=== PATIENT | female | born 1945 | race Caucasian/White ===

== ENCOUNTER 2016-04-29 15:26 | Observation (INO) | payer MEDICARE, MEDICAID ==
[~2016-04-29] VITALS: Ht 165.1 cm; Wt 107.0 kg
[2016-04-29 17:00] VITALS: BP 176/98; PULSE 77; RESP 20; O2SAT 94
--- NOTE | 2016-04-29 18:23 | NUR ---
Admit To [facility] from [place] at 16:50. Pt has no complaints, is cooperative and friendly with staff. No IV access at this time; per report she pulls them out. Also per report, she did have a fall yesterday. No bruises or injuries noted or reported. 1:1 REHABILITATION SERVICES MANAGER sitter is present in room. Hospitalist aware of pt arrival. Admit nurse to complete med rec.
--- NOTE | 2016-04-29 18:48 | PCM.HPMED ---
Subjective Date of Service Apr 29, 2016 Primary Provider: Admitting Physician: Brian Lozano MD Primary Care Physician: Rajendra Conway MD Attending Physician: Brian Lozano MD Chief Complaint: Tim mental status, agitation History of Present Illness: His 71s of female with multiple past medical history including but not limited to major depression, bipolar, COPD, hyperlipidemia, stroke, atrial fibrillation on Coumadin, who was sent from [facility] to [facility] basically for psychiatry evaluation which is not available. Patient has history of multiple strokes recent with approximately 4 weeks ago per medical record. She was eventually discharged rehabilitation and was readmitted for sudden episode of agitation. Again per record does episode seems to be unprovoked. Patient baseline is unknown to me but medical record review showed bipolar disorder and major depression. She uses to care for her who is now diagnosed with terminal lung cancer. Beside a UTI patient has no active medical issues. No chest pain, no shortness of breath, no fever, no chills, no knowledge, no vomiting,. Review of Systems: A comprehensive review of system cannot be obtain this time due to the patient' s altered mental status Allergies Coded Allergies: No Known Allergies (Unverified , 04/29/16) Home Medications Atorvastatin 80 mg orally daily, citalopram 20 mg orally daily, Coumadin 2 mg daily as directed with for many milligrams, thinking 3 mg 3 times a day, lamotrigine 200 mg orally daily at bedtime, lamotrigine 200 mg daily, lisinopril 5 mg daily, metoprolol 100 mg twice a day OTC : Milk of magnesia, senna, Tylenol, Dulcolax, PMH CVA, chronic atrial fibrillation, Duncan, hypertension, neuropathy, major depressive disorder, hyperlipidemia, dysphagia, hemiparesis, hemiplegia, COPD, bipolar, Surgical History Unable to obtain due to patient's altered mental status Family History Family history reasonable to obtain due to patient mental status Social History Hx Alcohol Use: Yes Alcoholic Drinks Per Day: none currently, for years Hx Substance Use: No Exam Vital Signs Vital Sign - Last Date Time Temp Pulse Resp B/P Pulse Ox O2 Delivery O2 Flow Rate FiO2 04/29/16 17:00 36.6 77 20 176/98 94 Room Air Exam General: Obese female in bed comfortably in no acute distress. Confused HEENT: Head is cephalic and atraumatic, sclerae anicteric\ Mouth: Moist oral mucosa, no oral thrush. Neck: No cervical lymphadenopathy, no JVD, trachea is midline. Chest: No chest wall tenderness, no deformity, no respiratory effort Lungs: Clear bilaterally to auscultation, no crackle, no wheezing Heart: S1, S2, irregular rate and routine, no gallop, no murmur. Abdomen: Bowel sounds normal all quadrant, no palpable mass, distended, non tender. Extremities: No edema, no cyanosis, no calf tenderness. Skin: No rash, no ulcers Nuero ; cn : Grossly non focal. Confused Lab and Diagnostics Labs Pending Assessment & Plan 1. Recurrent CVA \ 2. Dysphasia 3. Hypertension 4 . Dementia with behavioral disturbances 5. Atrial Fibrillation ( Chronic) 6. UTI. Patient is medically stable beyong the scope of ongoing UTI. Start IV ceftriaxone and obtain urine culture . Her UTI has nothing to do with her AMS and episode of agitation . She is transferred here from [place] for episodic agitation and AMS following CVA. She needs psychiatry evaluation which is not available there.It appears she has been functional prior to the CVA after which she had deteriorated and sent to rehabilitation . Consult speech and swallow for dysphasia PT evaluation Home medications to be resumed . Coumadin per pharmacist . INR in am . Disposition pending psychiatry evaluation and recommendations. VTE Prophylaxis: Theraputic Anticoag with Warfarin VTE Mechanical Devices: Intermittant Pneumatic CD Time spent 55 minutes Brian Lozano MD Apr 29, 2016 18:48
[2016-04-29 20:09] VITALS: BP 152/76; PULSE 88; RESP 20; O2SAT 94
[2016-04-29] MEDS ORDERED: BISA10SU61 RC (20:57)
[2016-04-29] MEDS ORDERED: WARF2TAB PO (20:57)
[2016-04-29] MEDS ORDERED: ATOR80TA77 PO (20:57)
[2016-04-29] MEDS ORDERED: GABA-502 PO (20:57)
[2016-04-29] MEDS ORDERED: ACET325C PO (20:57)
[2016-04-29] MEDS ORDERED: CITA20TA PO (20:57)
[2016-04-29] MEDS ORDERED: LAMO200T2 PO (21:00)
[2016-04-29] MEDS ORDERED: GERI-LANTA PO (21:00)
[2016-04-29] MEDS ORDERED: LAMO100T2 PO (21:00)
[2016-04-29] MEDS ORDERED: LISI-571 PO (21:00)
[2016-04-29] MEDS ORDERED: MAGN800O PO (21:01)
[2016-04-29] MEDS ORDERED: METO100T3 PO (21:01)
[2016-04-29] MEDS ORDERED: RISP0.5T14 PO (21:01)
[2016-04-29] MEDS ORDERED: SENN-133 PO (21:01)
[2016-04-29] MEDS ORDERED: Magnesium Hydroxide 10 mL Oral Concentration PO PRN (21:10)
[2016-04-29 21:33] LABS: INR 4.18 ratio
--- NOTE | 2016-04-29 22:05 | PCM.CONPHA ---
Subjective Date of Service: Apr 29, 2016 Requesting Provider: Brian Lozano MD mental status, agitation Reason for Pharmacy Consult: Anticoagulation Management Objective Vital Signs Date Time Temp Pulse Resp B/P Pulse Ox O2 Delivery O2 Flow Rate FiO2 04/29/16 20:09 36.8 88 20 152/76 94 Room Air 04/29/16 17:00 36.6 77 20 176/98 94 Room Air Weight (Kilograms): 107.000 Height (Feet): 5 Height (Inches): 5.00 Test 04/29/16 21:09 Prothrombin Time 46.0sec (8.1-12.5) Prothromb Time International Ratio 4.18ratio Assessment/Plan Assessment/Plan Warfarin dosing per pharmacy Indication: history of stroke INR goal: 2-3 Home warfarin dose: 2 mg daily Called Nayeli Hernández, at [facility] Pharmacy (after hours pharmacy service for [facility] - [phone]) and she provided the following information. She stated that some INR labs provided come from outpatient setting. Source CASCADE CASCADE CASCADE CASCADE CASCADE CASCADE CASCADE Date Apr 23Apr 24Apr 25Apr 26Apr 27Apr 28 INR 2.2 2.5 3.0 2.7 not avail 2.8 3.9 Dose not avail not avail not avail 2 mg 2 mg 2 mg 2 mg Of note, it appears that warfarin was given on 04/28 despite supratherapeutic INR. INR this evening is 4.18. Hold warfarin today. Pharmacy to continue to monitor and dose warfarin daily. Thank you, Karen Peterson Pharmacist Karen Peterson Apr 29, 2016 22:05
[2016-04-29] MEDS ORDERED: 0.9% Sodium Chloride 250 ML ONE (22:10)
[2016-04-29] MEDS: cefTRIAXone Inj 1,000 MG in Dextrose 5% Minibag Plus 50 ML IV SCH (22:21)
[2016-04-29] MEDS ORDERED: risperiDONE 1 mg Tablet PO ONE (23:00)
[2016-04-30 01:25] VITALS: BP 167/86; PULSE 78; RESP 22; O2SAT 94
[2016-04-30 05:02] VITALS: BP 137/73; PULSE 87; RESP 20; O2SAT 95
[2016-04-30 05:36] LABS: BASOPHILS % (AUTO) 0.2 % (0-3); EOSINOPHILS % (AUTO) 3.4 % (0-5); MONOCYTES % (AUTO) 10.3 % (4-12); Mean Corpuscular Hemoglobin 27.2 pg (27.0-35.0); Mean Corpuscular Volume 84.2 fL (81-100); NEUTROPHILS % (AUTO) 74.9 % (40-74); Platelet Count 262 bil/L (150-400)
[2016-04-30 06:12] LABS: INR 3.47 ratio
--- NOTE | 2016-04-30 06:21 | NUR ---
behavior pt started shift pleasant and cooperative with care. she allowed nurse to place an IV and was given her IV antibiotics. a couple hours into shift she started looking agitated. sitting up on the side of the bed rocking back and forth. she said she was trying "not to go crazy" and pull out her IV like last time. she asked if she could have something to calm her down. MD notified who ordered her a one time dose of risperdone. pt was given medication it seemed effective and she fell asleep. later on she woke up went to the bathroom and when the ATHLETIC EQUIPMENT MANAGER put gloves on she became agitated. she asked him "why do you want to kill me", "I know your going to kill me that's why your wearing gloves". nurse came in and tried to explain to pt that no one was trying to kill her but she said "your in on it too". the more staff engaged in the conversation the more upset pt appeared to get. pt was calmly told that she was safe and that the nurse would be back to check on her later. the ATHLETIC EQUIPMENT MANAGER sitter also removed her self from the room to deescalate the situation but sat in the doorway so she could still see the patient. pt has been calm the rest of the morning but any interaction with pt causes her to accuse staff of trying to kill her. will continue to monitor.
[2016-04-30 09:16] VITALS: BP 171/70; PULSE 95; RESP 22; O2SAT 93
--- NOTE | 2016-04-30 09:45 | NUR ---
Evaluation completed. Please go to "Notes" then click on "Assessments and Notes" (bottom left corner of screen). Then select appropriate discipline tab on top of screen.
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
--- NOTE | 2016-04-30 10:24 | NUR ---
Case Management: MELÉNDEZ given and explained to pt at 10:15. Anitha BILL, RN
[2016-04-30] MEDS: lamoTRIgine 100 mg Tablet PO SCH (10:46)
[2016-04-30] MEDS: risperiDONE 1 mg Tablet PO SCH ×2 (10:47→21:13)
--- NOTE | 2016-04-30 11:11 | NUR ---
Dropped Medication Patient dropped one 40 mg tab of atorvastatin. Removed one atorvastatin from [facility]. Sitter at bedside. Patient repositions self for comfort. Call light and tray table within reach. Will continue to monitor patient hourly.
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
--- NOTE | 2016-04-30 11:18 | NUR ---
NUTRITION ASSESSMENT Assess: 71 F w/ dementia, agitation, dysphagia, and UTI. Pt on dysphagia mechanical diet per ST, who have signed off at this time. Pt w/ poor dentition. Per MD, pt is medically stable however is awaiting a psychiatry evaluation. PMHx: CVA, Afib, HTN, Dementia, Neuropathy, Depression, HLD, Dysphagia, Hemiparesis, Hemiplegia, COPD, Bipolar LABS: Reviewed. Glu 125 MEDICATIONS: Reviewed. DIET: Dysphagia Mechanical, PO 25-50% GI symptoms/stool: No BM recorded Skin integrity: No issues noted, Lucho: 23 ANTHROPOMETRICS: Current Wt: 107 kg BMI: 39.3 kg/l1Ncbzn Wt: 107 kg IBW: 56.8 kgAdj BW: 69.4 kg Recent wt changes: None noted ESTIMATED NEEDS: BMI Calories: 4656-4526 kcal/d (25-30 kcal/kg/d Adj BW) Protein: 85-105 g/d (1.2-1.5 g/kg/d Adj BW) Fluids: 0176-3000 ml/d (1 ml/kcal/d) NUTRITION DIAGNOSIS: 1) Chewing/swallowing difficulty related to dentition as evidenced by missing/broken teeth and need for dysphagia diet. INTERVENTION: 1) Diet per ST recommendations 2) Will send supplements as needed MONITOR/EVALUATE: Diet yo, PO intake, Labs, Nutrition status, POC. Will follow per moderate nutrition risk guidelines.
[2016-04-30 12:22] VITALS: BP 123/56; PULSE 78; RESP 20; O2SAT 93
--- NOTE | 2016-04-30 15:11 | PCM.PHAPRO ---
Progress [place] mental status, agitation WARFARIN MANAGEMENT PER PHARMACY [facility] CASCADE CASCADE CASCADE CASCADE CASCADE CASCADE CASCADE MB DFF Date 16 17Apr 24Apr 25Apr 26Apr 27Apr 28Apr 29-Apr 24-Apr INR 2.2 2.5 3.0 2.7 2.8 3.9 4.18 3.47 INR change 0.3 0.5 -0.3 2.8 1.1 0.28 -0.71 Warf Dose 2 2 2 2 HOLD HOLD Supratherapeutic INR. Will continue to hold this evening. Neri Pedraza Apr 30, 2016 15:11
[2016-04-30 16:43] VITALS: BP 154/76; PULSE 72; RESP 18; O2SAT 95
--- NOTE | 2016-04-30 17:56 | NUR ---
Behavior Patient pleasant and cooperative this shift. Call light teaching done periodically this shift. Denies pain and nausea. Patient repositions self for comfort. Call light and tray table within reach. Will continue to monitor patient hourly.
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
[2016-04-30 20:00] VITALS: BP 139/75; PULSE 75; RESP 18; O2SAT 94
[2016-04-30] MEDS: cefTRIAXone Inj 1,000 MG in Dextrose 5% Minibag Plus 50 ML IV SCH (21:19)
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
[2016-05-01 05:34] VITALS: BP 129/72; PULSE 70; RESP 18; O2SAT 95
--- NOTE | 2016-05-01 05:48 | NUR ---
behavior pt pleasant and cooperative with care. she has slept most of the night. she still needs reminding to use her call light. chai alarm is on. care continues.
[2016-05-01 06:01] LABS: BASOPHILS % (AUTO) 0.2 % (0-3); EOSINOPHILS % (AUTO) 3.6 % (0-5); MONOCYTES % (AUTO) 13.2 % (4-12); Mean Corpuscular Hemoglobin 27.3 pg (27.0-35.0); Mean Corpuscular Volume 82.5 fL (81-100); Platelet Count 236 bil/L (150-400)
[2016-05-01 06:21] LABS: INR 2.51 ratio
[2016-05-01 06:32] LABS: Magnesium 1.9 mg/dL (1.6-2.6); Phosphorus 4.2 mg/dL (2.5-4.9)
[2016-05-01] MEDS: Pantoprazole 40 mg ER24 Tablet PO SCH (10:41)
[2016-05-01] MEDS: risperiDONE 1 mg Tablet PO SCH ×2 (10:49→20:13)
[2016-05-01] MEDS: lamoTRIgine 100 mg Tablet PO SCH (11:04)
[2016-05-01 14:46] VITALS: BP 105/58; PULSE 70; RESP 19; O2SAT 94
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
--- NOTE | 2016-05-01 16:30 | NUR ---
Social Work- Continued Discharge Planning Data: EMR reviewed. Pt is on day 2 of hospitalization for dementia with agitation per H&P. Psych has evaluated patient, who does not meet criteria for inpatient psychiatric care. Psych has ordered an OT evaluation. This evaluation is pending. Pt has been ambulating 400 ft with Physical Therapy. CRESCENCIO spoke with pts Roberto Carlos [phone] by phone today. Pts states he is not able to care for her at home due to his own medical concerns. CRESCENCIO spoke with Roberto Carlos regarding pt going home with HH. HH role explained. Roberto Carlos does not feel that HH provides the support he will need in caring for pt. CRESCENCIO educated pts about private pay SNF or private pay caregivers. SW continues to reinforce this to pts . As requested, CRESCENCIO faxed psych evaluation to [facility]. SNF will review patient for acceptance beginning Tuesday. CRESCENCIO spoke with UR RN who will request insurance auth for SNF placement. CRESCENCIO continues to follow. Assessment: Pt who will benefit from HH vs. SNF. Plan: Pt to be reassessed by [facility] for SNF eligibility. Insurance auth to be requested. CRESCENCIO continues to educate pts about HH, private pay SNF, and private pay caregivers. SW to educate on KIRAN process. CRESCENCIO continues to follow. JESSENIA Strickland
--- NOTE | 2016-05-01 18:03 | PCM.PNPSY ---
Subjective Date of Service May 01, 2016 Subjective Patient seen by this leader writer at 0930 this morning. She recognized this leader writer from yesterday as the psychiatrist but did not recall my name. She stated that she did not believe her was having an affair. She stated that she realized that it may be difficult for her to risk manager her at times, but that she is feeling much better than she did a few days ago. Explained the medication changes since transfer to [facility]. Patient had difficulty processing information but stated that she trusted the medical staff on her behalf. She was oriented to May 01, 2016, the hospital. Patient still reported suicide gesture with a butter knife was "a long time ago" despite there being a still healing superficial laceration. No side effect c/o. Sleep: "pretty good" Appetite: "good" Suicidal and homicidal ideation: denies Auditory hallucinations: denies Visual hallucinations: denies Other Psychotic Symptoms: N/A Anxiety/Depression: about return home Current Medications Current Medications Atorvastatin Calcium 80 mg DAILY PO Last administered on 05/01/16 10:43; Admin Dose 80 MG; Start 04/30/16 at 08:30 Ceftriaxone Sodium/Dextrose/ Water 50 ml @ 100 mls/hr Q24H IV Last administered on 04/30/16 21:19; Admin Dose 100 MLS/HR; Start 04/29/16 at 19:25 Citalopram Hydrobromide 20 mg DAILY PO Last administered on 05/01/16 10:42; Admin Dose 20 MG; Start 04/29/16 at 21:10 Gabapentin 300 mg TID PO Last administered on 05/01/16 10:42; Admin Dose 300 MG ; Start 04/30/16 at 08:30 Lamotrigine 300 mg DAILY PO Last administered on 05/01/16 11:04; Admin Dose 300 MG; Start 04/30/16 at 08:30 Lisinopril 5 mg DAILY PO Last administered on 05/01/16 10:42; Admin Dose 5 MG; Start 04/30/16 at 08:30 Metoprolol Tartrate 100 mg BID PO Last administered on 04/30/16 10:47; Admin Dose 100 MG; Start 04/30/16 at 08:30; Stop 04/30/16 at 15:35; Status DC Metoprolol Tartrate 100 mg BID PO Last administered on 05/01/16 10:43; Admin Dose 100 MG; Start 04/30/16 at 20:30 Pantoprazole 40 mg DAILYAC PO Last administered on 05/01/16 10:41; Admin Dose 40 MG; Start 05/01/16 at 07:30 Risperidone 0.5 mg ONCE ONCE PO Last administered on 04/29/16 23:03; Admin Dose 0.5 MG; Start 04/29/16 at 23:00; Stop 04/29/16 at 23:01; Status DC Risperidone 0.5 mg 0.5 mg BID PO Last administered on 05/01/16 10:49; Admin Dose 0.5 MG; Start 04/30/16 at 08:30 Senna 8.6 mg DAILY PRN PO Last administered on 05/01/16 12:36; Admin Dose 8.6 MG; Start 04/29/16 at 21:10 Sodium Chloride 250 ml @ ud STK-MED ONCE .ROUTE Last administered on 04/29/16 22:21; Admin Dose 10 MLS/HR; Start 04/29/16 at 22:10; Stop 04/29/16 at 22:13; Status DC Mental Status Exam Vital Signs Vital Signs Date Time Temp Pulse Resp B/P Pulse Ox O2 Delivery O2 Flow Rate FiO2 05/01/16 14:46 36.4 70 19 105/58 94 Room Air Appearance: Neat/well groomed (per hospital setting) Attitude: Pleasant, Cooperative Behavior: No unusual behavior Affect: Well Modulated/Appropriate Mood: Euthymic Thought Process/Associations: Logical/Sequential, Goal Directed Speech Production: Normal Speech Rate: Normal Speech Articulation: Normal Thought Content: Appropriate Danger to Self/Suicidal Ideati: None Danger to Others: None Delusions: Paranoid (Denies) Hallucinations: Auditory (Denies), Visual (Denies) Consciousness: Alert Orientation: Person, Place (partial), Date, Situation Memory: Short Term Memory (Impaired) Estimate Intellectual Function: Average Attention/Concentration & Cogn: Impaired Insight: Limited Judgement: Limited Result Diagram: 05/01/1653205/01/16532 Mental Health Plan The patient is a 71-year-old female with multiple recent cerebrovascular accidents and resulting neurocognitive deficits and apparent onset of hallucinations and delusions. The patient reports a history of bipolar disorder , although her symptoms appear inconsistent with bipolar. Given her cognitive deficits and inability of her to clarify much further, a definitive diagnosis of bipolar cannot be made. This could also be secondary to an axis II disorder, particularly given her report that, should she return home, all she needs is "cuddling, kidding around, and being aroused," by her . The patient's presentation would suggest that this is primarily, at this point, due to a stroke and she appears to have responded well to the low-dose risperidone. Would avoid using high doses of haloperidol or olanzapine. Of note, [facility] stated that they had prescribed olanzapine, but this was not seen in the last few days of her medications. Lamictal has been decreased since admission to [facility] but this should be clarified with her outpatient provider. The patient does not appear to have focal memory deficits that might benefit from such a medication as Namenda. Should the patient's depression worsens, citalopram could potentially be increased. The patient appears to have limited insight into her deficits and her mobility- impaired , who would certainly not be able to assist with a 107-kg , particularly should she fall. He has difficulty with ambulation and requires assistance himself. The patient would likely benefit from KIRAN ([facility] ) assessment and Occupational Therapy assessment for ADL's. Notes from [facility] indicated that geropsychiatric units were unwilling to take the patient given her inability to attend to her activities of daily living independently. At the present time, the patient is still not wanting inpatient psychiatric treatment and would likely not benefit from inpatient psychiatric treatment to any great degree and this particular facility is not set up for someone with her mobility requirements. She appears to be responding to treatment appropriately and we are awaiting OT evaluation. [place] I. Bipolar disorder by history Mood disorder unspecified vs. 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 [place] III See PMHx [place] IV Moderate with recent multiple strokes, mobility issues, medically ill , concerns about caregiver. [place] V Global Assessment of Functioning 35-40 Medications Medications to address General Physical Health Treatments 1. Would clarify with Dr. Conway whether the 500 mg of lamotrigine was required due to medication nonadherence or whether this was required to control her mood. At this time, leaving it at 300 seems prudent. [facility] reported that the patient is not in their system so cannot verify outpatient dose. 2. Agree with current risperidone 0.5 mg twice daily for treatment of psychosis, status post stroke scenario. The patient may need slow titration, but no increase is indicated at this time. 3. Reversible forms of dementia may want to be assessed and should the patient remain in the hospital, checking B12, folate, and RPR and may be helpful. 4. The patient is not appropriate for inpatient psychiatric treatment at [facility] but may be appropriate for a geropsychiatric facility if symptoms don't improve. At the present time, the patient does not wish inpatient psychiatric treatment. 5. The patient does not appear to have actually harmed herself in any significant way and it appears to have been a suicide gesture rather than actual attempt with the butter knife. She is, at the present time, denying all suicidal ideation. This appears to have been impulsive and may be secondary to confusion due to urinary tract infection or confusion due to stroke. 6. Please feel free to contact Psychiatry should you have further questions on this patient. 7. The patient appears to be responding to treatment, please contact psychiatry should the patient's status change. Psychiatry will sign off for now. Rikki Roldan MD May 01, 2016 18:03
--- NOTE | 2016-05-01 19:26 | NUR ---
Behavior Pt had appropriate behavior all shift and was able to use call light when needed. Able to call and order meals. Rowan bed alarm in place. Pt given stool softener and able to have BM.
[2016-05-01 20:03] VITALS: BP 143/73; PULSE 76; RESP 16
[2016-05-01] MEDS: cefTRIAXone Inj 1,000 MG in Dextrose 5% Minibag Plus 50 ML IV SCH (20:03)
[2016-05-02 00:08] VITALS: O2SAT 93
[2016-05-02 04:57] VITALS: BP 136/80; PULSE 73; RESP 22; O2SAT 93
--- NOTE | 2016-05-02 06:01 | NUR ---
Behavior/Resp Pt cooperative and appropriate throughout night, 1:1 green building architect at bedside for safety. Pt ambulated in healy, c/o SOB with exertion. SpO2 93% RA, RR 22 at rest.
[2016-05-02 06:17] LABS: INR 1.44 ratio
[2016-05-02 06:20] LABS: BASOPHILS % (AUTO) 0.4 % (0-3); EOSINOPHILS % (AUTO) 4.1 % (0-5); MONOCYTES % (AUTO) 11.8 % (4-12); Mean Corpuscular Hemoglobin 27.5 pg (27.0-35.0); NEUTROPHILS % (AUTO) 58.2 % (40-74); Platelet Count 228 bil/L (150-400)
[2016-05-02 06:23] LABS: Magnesium 1.9 mg/dL (1.6-2.6)
--- NOTE | 2016-05-02 06:54 | PCM.PHAPRO ---
Progress Tim mental status, agitation -May 01-May 02-Apr 3.47 2.51 1.44 -0.71 -0.96 -1.07 HOLD 1 1 Phil Trujillo May 02, 2016 06:54
[2016-05-02] MEDS: Pantoprazole 40 mg ER24 Tablet PO SCH (07:51)
[2016-05-02] MEDS: lamoTRIgine 100 mg Tablet PO SCH (07:52)
[2016-05-02] MEDS: risperiDONE 1 mg Tablet PO SCH ×2 (07:53→20:01)
--- NOTE | 2016-05-02 11:50 | NUR ---
Pain Pt reports new pain in her R hip and L neck. Hospitalist aware. Repositioned for comfort. UP walking hallways w/ this RN, sitter, FWW, and gait belt. Pt complains of dizziness and bilateral knee weakness. Hospitalist aware. Pt rested in w/c off and on during ambulation x2. Second time pt wheeled back to her room for safety. Bed down and locked, sitter at bedside for safety. Call light w/in reach.
[2016-05-02] MEDS: Alum-Mag Hydrox-Simeth 30 mL Suspension PO PRN (12:23)
[2016-05-02 12:30] VITALS: BP 128/74; PULSE 70; RESP 21; O2SAT 93
--- NOTE | 2016-05-02 14:33 | NUR ---
choice list provided. Renée Guo MSW
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
--- NOTE | 2016-05-02 15:31 | NUR ---
Social Work- Readiness for Discharge Data: EMR reviewed. Pt is on day 3 of hospitalization for dementia and agitation per H&P. SW spoke with patient at bedside today regarding discharge planning. Pt alert and oriented x3. Pt is ambulating 400 feet. PT continues to work with pt and recommend home with HH PT and spouse supervision. SW explained recommendation of HH. HH choice list provided. Pt has no agency preference. CRESCENCIO referred to rotating calendar and made referral to [facility], Jose Claros, [facility] liaison, , for RN and PT. Access given. F2F in folder to be signed. SW discussed option of private pay caregivers to come into the home. Pt adamant that this is a possibility and that she is willing and able to pay for these caregivers through her monthly Social Security. SW also spoke with pts Roberto Carlos [phone] phone. Pts continues to have concerns about caring for pt at home and pts mental status. SW explained that psych has cleared pt for home and pt is alert and oriented x3 today. SW explained HH recommendation, as well as option for additional private pay caregivers to assist in the home. Pts adamantly against this idea, states that they do not have the money. Pt, SW, and pts to meet tomorrow 05/03 at 10:15 am. SW continues to follow. Assessment: Pt who would benefit from RN PT. Plan: Referral made to [facility] for RN and PT. F2F in folder to be signed. Pt's has concerns about discharge plan. Pt, SW, and pt's , Roberto Carlos, to meet tomorrow 05/03 at 10:15 am. SW continues to follow. JESSENIA Strickland
--- NOTE | 2016-05-02 18:53 | NUR ---
patient ambulated the halls three times this shift with the caregiver: contact guard with the gait belt, FWW walker, and patient director of learning following with the wheelchair as patient was worried about becoming fatigued. RN aware of complaints. Addendum: 05/02/16 at 1856 by MARCUS GIBSON CNA Amended: Links added.
[2016-05-02] MEDS: cefTRIAXone Inj 1,000 MG in Dextrose 5% Minibag Plus 50 ML IV SCH (19:57)
[2016-05-02 20:00] VITALS: BP 124/68; PULSE 73; RESP 18; O2SAT 98
[2016-05-02] MEDS ORDERED: 0.9% Sodium Chloride 100 ML ONE (20:02)
--- NOTE | 2016-05-03 05:01 | NUR ---
Mentation: Pt continues to be impulsive and requires 1:1 sitter. C/o H/A and neck px, PRN tylenol effective
[2016-05-03 05:45] VITALS: BP 123/77; PULSE 78; RESP 18; O2SAT 92
[2016-05-03] MEDS: Pantoprazole 40 mg ER24 Tablet PO SCH (05:55)
[2016-05-03 06:41] LABS: BASOPHILS % (AUTO) 0.3 % (0-3); EOSINOPHILS % (AUTO) 3.8 % (0-5); MONOCYTES % (AUTO) 10.1 % (4-12); Mean Corpuscular Hemoglobin 27.1 pg (27.0-35.0); Mean Corpuscular Volume 86.1 fL (81-100); NEUTROPHILS % (AUTO) 62.2 % (40-74); Platelet Count 234 bil/L (150-400)
[2016-05-03 06:58] LABS: Phosphorus 4.4 mg/dL (2.5-4.9)
[2016-05-03 07:12] LABS: INR 1.28 ratio
--- NOTE | 2016-05-03 09:07 | PCM.PHAPRO ---
Progress Date of Service: May 03, 2016 [place] mental status, agitation Warfarin dosing per pharmacy Indication: hx of stroke INR goal: 2-3 Date Apr 30-May 01May 02-May 03-Apr INR 4.18 3.47 2.51 1.44 1.28 INR change 0.28 -0.71 -0.96 -1.07 -0.16 dose HOLD HOLD 1 1 XXXX INR is subtherapeutic following held doses (for INR greater than 3.0). Will order bolus dose of warfarin based on home dose; give warfarin 3 mg PO today. Pharmacy to continue to monitor and dose warfarin daily. Thank you. Karen Peterson Pharmacist Karen Peterson May 03, 2016 09:07
[2016-05-03] MEDS: lamoTRIgine 100 mg Tablet PO SCH (10:39)
[2016-05-03] MEDS: risperiDONE 1 mg Tablet PO SCH (10:40)
[2016-05-03] MEDS: Alum-Mag Hydrox-Simeth 30 mL Suspension PO PRN (10:44)
--- NOTE | 2016-05-03 10:51 | DRSVH ---
Formerly [facility] [address] [place] [address] Echocardiogram Report Name: JON BALLARD LStudy Date: 05/03/2016 Height: 65 in Hospital Exam Location: [facility] Weight: 236 lb Gender: Female BSA: 2.1 m2 : 1945 Age: 71 yrs BP: 123/77 mmHg Reason For Study: AFIB, DIZZINESS Ordering Physician: HOSPITALIST [facility] Performed By: Ace Don Referring Physician: Meli VICKERS Interpretation Summary The patient was in atrial fibrillation with controlled ventricular rate during the exam. Normal left ventricle size with ejection fraction 60-65%. Mildly dilated left atrium. Moderate to severe mitral regurgitation. Mild aortic valve sclerosis. Procedure: A two-dimensional transthoracic echocardiogram with color flow and Doppler was performed. The study quality was technically adequate. There is no prior echocardiogram noted for this patient. A contrast injection of Definity was performed to improve assessment of LV function. The patient was in atrial fibrillation with controlled ventricular rate during the exam. The patient had a heart rate of 69-92 beats per minute. Left Ventricle: The left ventricle is normal in size. There is normal left ventricular wall thickness. The ejection fraction is estimated to be 60-65%. There are no focal wall motion abnormalities. Diastolic function could not be accurately assessed due to atrial fibrillation. Right Ventricle: The right ventricle is normal in size and function. Atria: The left atrium is mildly dilated. Right atrial size is normal. The interatrial septum is intact with no evidence for an atrial septal defect. Mitral Valve: The mitral valve leaflets are slightly calcified. There is moderate to severe mitral regurgitation. Aortic Valve: The aortic valve opens well. There is mild aortic valve sclerosis. There is no aortic valve stenosis. No aortic regurgitation is present. Tricuspid Valve: The tricuspid valve is normal in structure and function. No tricuspid regurgitation. Pulmonary artery pressures cannot be estimated because of the lack of a measurable TR jet velocity. Pulmonic Valve: The pulmonic valve is normal in structure and function. There is trace pulmonic regurgitation. Great Vessels: The aortic root is normal size. The dimensions of the ascending aorta are normal. The pulmonary artery is normal size. The IVC is dilated (diameter is greater than 2.1 cm) yet it collapses greater than 50% with a sniff. This suggests a right atrial pressure of 8 mm Hg. Pericardium/ Pleura There is no pericardial effusion. There is no pleural effusion. MMode/2D Measurements & Calculations LVIDd: 4.2 cm RA long axis LVOT diam LVIDs: 2.3 cm LA A2 area: 25.3 cm FS: 46.0 % LA A4 area: 20.9 cm RA area Ao root diam EPSS: 0.32 cm LA length (vol): 6.1 cm IVSd: 0.73 cm LA vol: 74.3 ml : 16.5 cm Aortic Jxn LVPWd: 0.89 cm LA vol index RA vol: 46.1 ml RA asc Aorta : 21.7 mm2 Diam: 2.7 cm IVC diam: 2.6 cm LV johnson. diameter/BSA LV sys. diameter/BSA RVD1 (basal) RVD2 (mid) (cm/m^2): 2.0 (cm/m^2): 1.1 : 3.2 cm Doppler Measurements & Calculations Ao V2 max MV E max dylan MV E/A: 119.2 PA V2 max : 172.4 cm/sec : 97.2 cm/sec Med Peak E' Dylan : 87.4 cm/sec Ao max PG MV A max dylan PA mean PG : 12.0 mmHg : 0.82 cm/sec E/E' med: 14.7 Ao mean PG PA Accel Time : 0.09 sec LVOT Max Dylan : 92.7 cm/sec SAMI(I,D): 1.9 cm sev ratio MV dec time Ao V2 mean LV V1 max PG MR PISA radius : 0.30 sec : 129.3 cm/sec Ao V2 VTI: 29.5 cm LV V1 VTI: 18.2 cm SAMI(V,D): 1.6 cm2 PA V2 mean SAMI indexed to BSA : 58.9 cm/sec (cm^2/m^2): 0.89 PA pr(Accel) : 34.1 mmHg Electronically signed by: Ronan Romo on Reading Physician:05/03/2016 10:50 AM
--- NOTE | 2016-05-03 11:41 | NUR ---
Social Work- Readiness for Discharge Data: EMR reviewed. Pt is on day 4 of hospitalization for dementia and agitation per H&P. Pt is medically stable to discharge. Per RN notes, pt has been up and ambulating in the room and healy. PT has cleared patient for home with HH, ambulating 400 feet. Psychiatry has seen patient and cleared pt to return home. No need for inpatient psychiatry. CRESCENCIO met with , friend Sanket and UR RN to discuss discharge planning. SW explained pt is medically stable to leave the hospital today. Pt has been cleared by both PT and psychiatry to return home. UR RN explained medication changes from Psychiatry. At this time, pt does not qualify to return to [facility] due to not having skillable need. Insurance will not cover this. SW discussed fpc planning with and friend regarding HH, mental health counseling, and [facility]. informed SW that Medicaid application has been submitted but needs to submit financial information. SW encouraged friend and to go to [facility] directly to discuss. SW explained that expedited referral from hospital could be faxed in for assistance with [facility] Caregiving down the road. Pt's and friend agreeable for pt to discharge home. SW received call from [facility] stating they do not contract with pt's insurance. CRESCENCIO provided referral to [facility] with [facility] for RN PT OT ARCHITECTURE TECHNICIAN, who confirms that they contract with pt's insurance and agreeable to referral. Access given. CRESCENCIO provided and friend with mental health resources, [facility] Resource Guide, Questions and Answers about [facility], and [facility] information. SW will continue to follow. Assessment: Pt who would benefit from [facility] RN PT OT ARCHITECTURE TECHNICIAN. Plan: Pt to discharge home with [facility] RN PT OT ARCHITECTURE TECHNICIAN via POV. Pt has been cleared by psychiatry and PT to return home with HH. CRESCENCIO provided and friend with mental health resources, [facility] Resource Guide, Questions and Answers about [facility], and [facility] information. CRESCENCIO will continue to follow. JESSENIA Strickland
--- NOTE | 2016-05-03 12:19 | PCM.DIMED ---
Discharge Instructions Date of Service May 03, 2016 Dates of Hospitalization Apr 29, 2016 at 16:36 Discharge Diagnosis Discharge Diagnosis Depression and possible bipolar disorder along with Atrial fibrillation and moderate to severe mitral valve regurgitation Diet Heart Healthy Activity No restrictions (Patient to get up from a lying position to sitting for 5-10 minutes before standing) Call your provider Fever or Chills, Shortness of breath, Bleeding, Chest pain, Vomitting, Excessive diarrhea Patient Instructions Follow-up Provider: Rajendra Conway MD Follow-up with PCP in: 1 week (Patient needs a referral to her Tie Layer Dr. Taveras in [place].) Chai Johnson MD May 03, 2016 12:19
[2016-05-03] MEDS ORDERED: RISP0.5T14 PO (12:22)
[2016-05-03] MEDS ORDERED: WARF2TAB PO (12:22)
--- NOTE | 2016-05-03 12:31 | NUR ---
Social Work- Discharge Data: EMR reviewed. Pt is on day 4 of hospitalization for dementia and agitation per H&P. Pt is medically stable to discharge. Per RN notes, pt has been up and ambulating in the room and healy. PT has cleared patient for home with HH, ambulating 400 feet. Psychiatry has seen patient and cleared pt to return home. No need for inpatient psychiatry. CRESCENCIO provided F2F and orders to [facility] from [facility] for RN PT OT and CONVEYOR BELT INSTALLER. CRESCENCIO provided pt's and friend with Mental Health resources, [facility] Resource Guide, Questions and Answers about [facility], [facility] information. CRESCENCIO completed Expedited Referral and faxed in for [facility] application. Pt does not meet criteria to return back to [facility]. and neighbor to transport pt home today. All updated and agreeable to plan. Assessment: Pt who would benefit from [facility] RN PT OT CONVEYOR BELT INSTALLER. Plan: Pt to discharge home today with and neighbor via POV. Pt cleared by psychiatry and PT to return home. F2F and orders provided to [facility] for RN PT OT CONVEYOR BELT INSTALLER. CRESCENCIO provided pt's and friend with Mental Health resources, [facility] Resource Guide, Questions and Answers about [facility], [facility] information. CRESCENCIO completed Expedited Referral and faxed in for [facility] application. All updated and agreeable to plan. JESSENIA Strickland Addendum: 05/03/16 at 1237 by MORE ALEXANDER SS Social Work [facility]. JESSENIA Strikcland
--- NOTE | 2016-05-03 14:04 | NUR ---
Discharge Pt discharged at 1355 in w/c to private vehicle with family. Pt has all discharge instructions, care notes and rx's. Pt will call MD for f/u appt. All questions answered. Pt A&O x 3, EDISON, BIMAL. IV removed intact. Pt has all belongings. Pt will be followed by home health and they will be checking protime levels. Next level to be checked on Tuesday.
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
[2016-05-04 07:10] LABS: Vitamin B12 527 pg/mL (211-946)
== END 2016-05-03 13:55 | disposition home or self-care (01) ==
LOC: OSC 15:26 → UNDOADMIN 15:26 → INTOOBSV 16:36 → OSC 16:36
PROVIDERS: ADMIT Internal Medicine; ATTEND Internal Medicine
DX: F32.9 Major depressive disorder, single episode, unspecified (principal); R41.89 Other symptoms and signs involving cognitive functions and awareness; R41.82 Altered mental status, unspecified; T14.91 Suicide attempt; N39.0 Urinary tract infection, site not specified; I63.8 Other cerebral infarction; G81.90 Hemiplegia, unspecified affecting unspecified side; I48.2 Chronic atrial fibrillation; Z79.01 Long term (current) use of anticoagulants; I34.0 Nonrheumatic mitral (valve) insufficiency; I10 Essential (primary) hypertension
CPT/HCPCS: 36415; 80048; 80053; 82607; 82746; 83735; 84100; 84443; 85025; 85610; 86592; 92610; 97161; C8929; G0378; G0379; G8996; G8997; G8998; J0696; J7050; Q9957